=== PATIENT | male | born 1945 | race Caucasian/White ===

== ENCOUNTER 2020-02-04 14:48 | Emergency (ER) | payer MEDICARE, OTHER, SELFPAY ==
[2020-02-04] VITALS (19 sets, daily range): BP systolic 115–165; BP diastolic 59–85; PULSE 66–79; RESP 13–23; TEMP 36.8; O2SAT 93–98; BMI 30.1
--- NOTE | 2020-02-04 15:01 | DI.RAD.S_ITS ---
PROCEDURE: XR CHEST 1V INDICATIONS: chest pain TECHNIQUE: One view of the chest was acquired. COMPARISON: None. FINDINGS: Surgical changes and devices: None. Lungs and pleura: Lungs are clear. No pleural effusions or pneumothorax. Mediastinum: Mediastinal contours appear normal. Heart size is at the upper limits of normal. Bones and chest wall: No suspicious bony lesions. Overlying soft tissues appear unremarkable. IMPRESSION: No acute cardiopulmonary abnormality. Dictated by: Mohamud Nix M.D. on 02/04/2020 at 14:26 Approved by: Mohamud Nix M.D. on 02/04/2020 at 14:27
[2020-02-04 15:14] LABS: Add Manual Diff / Slide Review NO; Basophils Absolute Auto 0 /uL (0-100); Basophils Percent Auto 0.4 % (0-2); Eosinophils Absolute Auto 100 /uL (0-450); Eosinophils Percent Auto 2.2 % (2-4); Hematocrit 46.4 % (41-53); Hemoglobin 15.8 g/dL (13.5-17.5); Lymphocytes Absolute Auto 2100 /uL (1100-4500); Lymphocytes Percent Auto 36.7 % (25-40); Mean Corpuscular HGB Conc 34.1 % (30-36); Mean Corpuscular Hemoglobin 33.4 PG (26-34); Monocytes Absolute Auto 700 /uL (0-900); Monocytes Percent Auto 12.8 % (3-14); Neutrophils Absolute Auto 2700 /uL (1500-7000); Neutrophils Percent Auto 47.9 % (50-75); Platelet Count 208 X10^3/uL (150-400); Red Blood Cell Count 4.74 X10^6/uL (4.5-5.9); Red Cell Distribution Width 12.9 % (11.6-14.8); White Blood Cell Count 5.7 X10^3/uL (4.5-11.0)
[2020-02-04 15:29] LABS: Prothrombin Time 11.3 SECONDS (10.1-12.7)
[2020-02-04 15:32] LABS: PTT Partial Thromboplastin Tim 30 SECONDS (26.4-36.2)
[2020-02-04 15:33] LABS: Alanine Aminotransferase 26 IU/L (<50); Albumin 4.5 g/dL (3.5-5.0); Albumin Globulin Ratio 1.3 (1.0-2.8); Alkaline Phosphatase 96 U/L (38-126); Aspartate Aminotransferase 49 IU/L (17-59); BUN Creatinine Ratio 18.8 (6-22); Bilirubin Total 1.3 mg/dL (0.2-1.3); Blood Urea Nitrogen 19 mg/dL (9-20); Calcium 8.8 mg/dL (8.4-10.2); Carbon Dioxide 30 mmol/L (22-32); Chloride 106 mmol/L (98-107); Creatine Kinase 445 U/L (55-170); Estimated Glomerular Filt Rate > 60.0 mL/min (>60); Globulin 3.6 g/dL (1.7-4.1); Glucose 93 mg/dL (80-110); Lipase 205 U/L (23-300); Sodium 139 mmol/L (137-145); Total Protein 8.1 g/dL (6.3-8.2)
[2020-02-04 15:41] LABS: HEMOLYSIS 196 (0-50); Potassium 5.5 mmol/L (3.4-5.1)
[2020-02-04 15:48] LABS: CKMB % Relative Index 1.5 % (1.5-5.0); Creatine Kinase MB 6.78 ng/mL (<2.37)
--- NOTE | 2020-02-04 16:22 | ED_ITS ---
HPI - Chest Pain General Chief Complaint: Chest Pain Stated Complaint: Chest Tightness and equilibrium felt off Time Seen by Provider: 02/04/20 14:58 Source: patient Mode of arrival: Ambulatory Limitations: no limitations History of Present Illness HPI narrative: Patient is a 74-year-old male who presents with chest pain and not feeling right. He had gotten up from lunch high had made a couple passes in the room when he suddenly felt extremely lightheaded and had chest discomfort. His lowered him to the floor he did not really pass out. She made an go lay down intake and small nap. He now is feeling fine. He denies any further dizziness or lightheadedness. He no longer has chest pain he denies any shortness of breath although he has had a cough. They were traveling and waited 8 days until they got a COVID test, 2 days ago and received negative results yesterday. They are asymptomatic. Is nonproductive cough no change in taste or smell Related Data Allergies Allergy/AdvReac Type Severity Reaction Status Date / Time From ZITHROMAX Allergy Unknown Uncoded 05/26/17 11:53 Review of Systems Review of Systems ROS Unobtainable: All systems reviewed & are unremarkable except as noted in HPI and below Constitutional Constitutional: Denies body ache(s), Denies chills and Denies lethargy ENT Ears, Nose, Mouth, and Throat: Denies change in voice, Reports dizziness, Denies neck pain and Denies sore throat Cardiovascular Cardiovascular: Reports as per HPI, Reports chest pain, Denies syncope, Denies rapid heart rate, Denies edema, Reports lightheadedness, Denies radiating jaw, neck or arm pain, Denies palpitations and Denies dyspnea on exertion Respiratory Respiratory: Denies chest congestion, Reports cough, Denies pain on inspiration and Denies dyspnea on exertion Gastrointestinal Gastrointestinal: Denies abdominal pain, Denies change in bowel habits, Denies diarrhea, Denies nausea and Denies vomiting Musculoskeletal Musculoskeletal: Denies back pain, Denies myalgias and Denies neck pain Integumentary/Breasts Skin/Breast: Denies pruritus, Denies erythema, Denies rash and Denies wounds Neurologic Neurologic: Reports dizziness, Denies syncope and Reports lack of coordination (Off balance) Endocrine Endocrine: Denies palpitations Patient History Social History (Reviewed 02/04/20 @ 16:32 by JALEN Hadley Smoking Status: Never smoker Smoking Status: Never smoker alcohol intake frequency: 0-2 drinks per day Alcohol type: wine Substance Use Type: does not use Exam Initial Vital Signs Initial Vital Signs: Vital Signs Pulse Rate 76 02/04/20 14:59 Pulse Oximetry 97 02/04/20 14:59 GENERAL: Alert pleasant well-appearing 74-year-old male and in no acute distress. HEENT: Head atraumatic,EOMI, pupils reactive, face symmetric, moist mucous membranes CARDIOVASCULAR: Regular rate and rhythm without murmurs, rubs or gallops. RESPIRATORY: Breath sounds equal bilaterally, no wheezes rales or rhonchi. ABDOMEN: Soft, nontender. Normoactive bowel sounds all 4 quadrants. No guarding or rebound. EXTREMITIES: Normal range of motion, no clubbing or edema. Neurovascularly intact NEUROLOGICAL: Alert and oriented x4.Normal gait and speech. Cranial nerves II through XII grossly intact. Good [id number], good [id number], strength equal bilaterally, no dysarthria or aphasia, sensation in tact to soft touch bilaterally, no visual changes, no facial droop SKIN: Warm, dry, no laceration, no petechiae, no rashes or lesions. Scores NIH Stroke Scale Level of Conciousness: Alert, keenly responsive Ask month/age: Answers both questions correctly. Open/close eyes, close hand: Performs both tasks correctly Best gaze horizontal: Normal Visual russell: No visual loss Facial palsy: Normal symetrical movement Left arm drift: No drift for full 10 sec Right arm drift: No drift for full 10 sec Left leg drift: No drift for full 5 sec Right leg drift: No drift for full 5 sec Limb ataxia: Absent Sensory on face/arms/legs: Normal, no sensory loss Best language: No aphasia, normal Dysarthria: Normal Extinction or inattention: No abnormality Total NIH Stroke scale score: 0 Course Orders Ordered: ED Orders 02/04/20 15:01 XR chest 1V Stat EKG-12 Lead Stat 02/04/20 15:02 Complete Blood Count AUTO DIFF Stat Comprehensive Metabolic Panel Stat Lipase Stat Partial Thromboplastin Time Stat Prothrombin Time INR Stat Troponin & CK Cardiac Panel Stat 02/04/20 15:12 COVID19 Stat 02/04/20 16:23 CT head/brain wo con Stat 02/04/20 16:31 D Dimer Stat 02/04/20 17:02 Troponin I Stat Heparin Sodium/Dextrose (Heparin Drip) 25,000 unit in 500 mls @ 20 mls/hr IV CONT AKILA; Protocol Last Admin: 02/04/20 18:01 Dose: 1,000 units/hr, 20 mls/hr Documented by: ZEUS Discontinued Medications Aspirin (Aspirin 81 Mg Chew Tab) 324 mg PO NOW ONE Stop: 02/04/20 17:51 Last Admin: 02/04/20 17:58 Dose: 324 mg Documented by: ZEUS Heparin Sodium (Porcine) (Heparin 5,000 Unit/Ml Vial) 5,000 unit IV NOW ONE Stop: 02/04/20 17:51 Last Admin: 02/04/20 18:00 Dose: 5,000 unit Documented by: ZEUS Vital Signs Vital signs: Vital Signs - 8 hr 02/04/20 14:59 02/04/20 15:00 02/04/20 15:16 Temperature 98.2 F Pulse Rate 76 79 72 Pulse Rate [Orthostatic Lying] Pulse Rate [Orthostatic Sitting] Pulse Rate [Orthostatic Standing] Respiratory Rate 16 18 Blood Pressure 165/85 H 153/82 H Blood Pressure [Orthostatic Lying] Blood Pressure [Orthostatic Sitting] Blood Pressure [Orthostatic Standing] Pulse Oximetry 97 98 97 02/04/20 15:18 02/04/20 15:19 02/04/20 15:29 Temperature Pulse Rate 71 78 Pulse Rate [Orthostatic Lying] 74 Pulse Rate [Orthostatic Sitting] 74 Pulse Rate [Orthostatic Standing] 78 Respiratory Rate 14 23 Blood Pressure 139/79 Blood Pressure [Orthostatic Lying] 153/82 H Blood Pressure [Orthostatic Sitting] 139/79 Blood Pressure [Orthostatic Standing] 153/75 H Pulse Oximetry 96 96 02/04/20 15:30 02/04/20 16:00 02/04/20 16:34 Temperature Pulse Rate 69 69 68 Pulse Rate [Orthostatic Lying] Pulse Rate [Orthostatic Sitting] Pulse Rate [Orthostatic Standing] Respiratory Rate 15 13 Blood Pressure 135/70 115/59 L Blood Pressure [Orthostatic Lying] Blood Pressure [Orthostatic Sitting] Blood Pressure [Orthostatic Standing] Pulse Oximetry 95 94 96 02/04/20 16:59 02/04/20 17:00 02/04/20 17:30 Temperature Pulse Rate 66 66 67 Pulse Rate [Orthostatic Lying] Pulse Rate [Orthostatic Sitting] Pulse Rate [Orthostatic Standing] Respiratory Rate 17 18 13 Blood Pressure 141/85 H 128/80 Blood Pressure [Orthostatic Lying] Blood Pressure [Orthostatic Sitting] Blood Pressure [Orthostatic Standing] Pulse Oximetry 95 96 93 02/04/20 18:00 02/04/20 18:02 Temperature Pulse Rate 70 68 Pulse Rate [Orthostatic Lying] Pulse Rate [Orthostatic Sitting] Pulse Rate [Orthostatic Standing] Respiratory Rate 20 21 Blood Pressure 153/84 H Blood Pressure [Orthostatic Lying] Blood Pressure [Orthostatic Sitting] Blood Pressure [Orthostatic Standing] Pulse Oximetry 97 96 MDM - Chest Pain Lab Data Attestation: I reviewed the patient's lab results. Result diagrams: 02/04/20 15:02 02/04/20 15:02 Labs: Lab Results 02/04/20 02/04/20 02/04/20 Range/Units 15:02 15:02 15:02 WBC 5.7 (4.5-11.0) X10^3/uL RBC 4.74 (4.5-5.9) X10^6/uL Hgb 15.8 (13.5-17.5) g/dL Hct 46.4 (41-53) % MCV 98.0 (80-100) fL MCH 33.4 (26-34) PG MCHC 34.1 (30-36) % RDW 12.9 (11.6-14.8) % Plt Count 208 (150-400) X10^3/uL Neut % (Auto) 47.9 L (50-75) % Lymph % (Auto) 36.7 (25-40) % [place] % (Auto) 12.8 (3-14) % Eos % (Auto) 2.2 (2-4) % Baso % (Auto) 0.4 (0-2) % Neut # (Auto) 2700 (9718-8408) /uL Lymph # (Auto) 2100 (0297-4681) /uL [place] # (Auto) 700 (0-900) /uL Eos # (Auto) 100 (0-450) /uL Baso # (Auto) 0 (0-100) /uL PT 11.3 (10.1-12.7) SECONDS INR 1.0 (0.9-1.3) APTT 30 (26.4-36.2) SECONDS D-Dimer (<230) ng/mL Sodium 139 (137-145) mmol/L Potassium 5.5 H (3.4-5.1) mmol/L Chloride 106 (98-107) mmol/L Carbon Dioxide 30 (22-32) mmol/L BUN 19 (9-20) mg/dL Creatinine 1.01 (0.66-1.25) mg/dL Estimated GFR > 60.0 (>60) mL/min BUN/Creatinine Ratio 18.8 (6-22) Glucose 93 (80-110) mg/dL Calcium 8.8 (8.4-10.2) mg/dL Total Bilirubin 1.3 (0.2-1.3) mg/dL AST 49 (17-59) IU/L ALT 26 (<50) IU/L Alkaline Phosphatase 96 (38-126) U/L Total Creatine Kinase 445 H (55-170) U/L CK-MB (CK-2) 6.78 H (<2.37) ng/mL CK-MB (CK-2) Rel Index 1.5 (1.5-5.0) % Troponin I 0.050 H (0.01-0.034) ng/mL Total Protein 8.1 (6.3-8.2) g/dL Albumin 4.5 (3.5-5.0) g/dL Globulin 3.6 (1.7-4.1) g/dL Albumin/Globulin Ratio 1.3 (1.0-2.8) Lipase 205 (23-300) U/L COVID-19 PCR (Negative) 02/04/20 02/04/20 02/04/20 Range/Units 15:12 16:31 17:02 WBC (4.5-11.0) X10^3/uL RBC (4.5-5.9) X10^6/uL Hgb (13.5-17.5) g/dL Hct (41-53) % MCV (80-100) fL MCH (26-34) PG MCHC (30-36) % RDW (11.6-14.8) % Plt Count (150-400) X10^3/uL Neut % (Auto) (50-75) % Lymph % (Auto) (25-40) % [place] % (Auto) (3-14) % Eos % (Auto) (2-4) % Baso % (Auto) (0-2) % Neut # (Auto) (6072-6416) /uL Lymph # (Auto) (5140-9984) /uL [place] # (Auto) (0-900) /uL Eos # (Auto) (0-450) /uL Baso # (Auto) (0-100) /uL PT (10.1-12.7) SECONDS INR (0.9-1.3) APTT (26.4-36.2) SECONDS D-Dimer 244 H (<230) ng/mL Sodium (137-145) mmol/L Potassium (3.4-5.1) mmol/L Chloride (98-107) mmol/L Carbon Dioxide (22-32) mmol/L BUN (9-20) mg/dL Creatinine (0.66-1.25) mg/dL Estimated GFR (>60) mL/min BUN/Creatinine Ratio (6-22) Glucose (80-110) mg/dL Calcium (8.4-10.2) mg/dL Total Bilirubin (0.2-1.3) mg/dL AST (17-59) IU/L ALT (<50) IU/L Alkaline Phosphatase (38-126) U/L Total Creatine Kinase (55-170) U/L CK-MB (CK-2) (<2.37) ng/mL CK-MB (CK-2) Rel Index (1.5-5.0) % Troponin I 0.126 H* (0.01-0.034) ng/mL Total Protein (6.3-8.2) g/dL Albumin (3.5-5.0) g/dL Globulin (1.7-4.1) g/dL Albumin/Globulin Ratio (1.0-2.8) Lipase (23-300) U/L COVID-19 PCR Negative (Negative) Imaging Data Chest x-ray: Radiologist's Impression: PROCEDURE: XR CHEST 1V INDICATIONS: chest pain TECHNIQUE: One view of the chest was acquired. COMPARISON: None. FINDINGS: Surgical changes and devices: None. Lungs and pleura: Lungs are clear. No pleural effusions or pneumothorax. Mediastinum: Mediastinal contours appear normal. Heart size is at the upper limits of normal. Bones and chest wall: No suspicious bony lesions. Overlying soft tissues appear unremarkable. IMPRESSION: No acute cardiopulmonary abnormality. Dictated by: Mohamud Nix M.D. on 02/04/2020 at 14:26 CT scan - head: Radiologist's Impression: PROCEDURE: CT HEAD/BRAIN WO CON INDICATIONS: dizzy near syncope TECHNIQUE: Noncontrast 4.5 mm thick angled axial sections acquired from the foramen magnum to the vertex, with coronal and sagittal reformats. For radiation dose reduction, the following was used: automated exposure control, adjustment of mA and/or kV according to patient size. COMPARISON: None. FINDINGS: Image quality: Excellent. CSF spaces: Basal cisterns are patent. No extra-axial fluid collections. Ventricles are normal in size and shape. Brain: No midline shift. No intracranial masses or hemorrhage. No area of hypodensity in a large vascular distribution to suggest acute infarction. Periventricular hypodensity consistent with chronic microvascular ischemic change. Age-related parenchymal loss. Skull and face: Calvarium and visualized facial bones are intact, without suspicious lesions. Sinuses: Visualized sinuses and mastoids are clear. IMPRESSION: No acute intracranial abnormality. Dictated by: Mohamud Nix M.D. on 02/04/2020 at 15:46 ECG Data Attestation: I personally reviewed and interpreted this ECG as follows: Prior ECG tracings: not available for review Interpretation: EKG 1. Normal sinus rhythm rate 75 p.r. interval 182 QRS 86 QTC 445 Q-wave noted in lead [address] changes no priors to compare no T-wave inversions EKG 2. Sinus rhythm rate 68 however Q-waves are noted in 2 and AVF with T-wave inversion noted in lead [address] elevations she weighs previously noted in 1 and aVL are no longer present EKG 3 sinus rhythm persisting Q-waves in 2 and AVF with T-wave inversion in lead [address] changes similar to EKG 2. MDM Narrative Medical decision making narrative: Patient 74-year-old male who complains of not feeling right and some chest discomfort. Initial EKG has Q-waves in lateral leads which are then resolved by the 2nd EKG and now he has Q-waves in inferior leads with T-wave inversions not know EKG shows ST elevation. Presumably limb leads were reversed. Initial troponin is indeterminate repeat troponin is now and clearly positive. Patient denies any recurrence of chest pain a in the emergency department and remains comfortable. 1814 Dr. Marcelo special procedures technologist updated patient's symptoms test results and EKGs agrees with transfer to [facility] admit to hospitalist 1849 Dr. Vega, hospitalist at [facility] updated in symptoms test results agrees with transfer Critical Care Time Critical Care Time Critical Care Time: Yes Total Critical Care Time: 30 Attestation: The high probability of a clinically significant, sudden or life threatening deterioration of the [cardiovascular] system(s) required my full and direct attention, intervention and personal management. The aggregate critical care time was 30 minutes. This time is in addition to time spent performing reported procedures but includes the following: [x] Data Review and interpretation [x] Patient assessment and monitoring of vital signs [x] Documentation [x] Medication orders and management Discharge Plan Departure Patient Disposition: [facility] Clinical Impression: Acute non-ST elevation myocardial infarction (NSTEMI)
[2020-02-04 16:51] LABS: D Dimer 244 ng/mL (<230)
[2020-02-04 17:50] LABS: Troponin I 0.126 ng/mL (0.01-0.034)
[2020-02-04] MEDS: ASPIRIN 81 MG CHEW TAB 324 MG PO (17:58)
[2020-02-04] MEDS: HEPARIN 5,000 UNIT/ML VIAL 5000 UNIT IV (18:00)
[2020-02-04] MEDS: HEPARIN DRIP 25,000 UNIT/500 ML IV.SOLN 20 UNIT IV (18:01)
--- NOTE | 2020-02-04 18:07 | PC.NURSE ---
Heparin drip started at 1000unit/hr per provider order. Dosage and pump setting confirmed with Venessa RN prior to starting.
[2020-02-04 18:23] LABS: COVID19 -Nasal RAPID Negative (Negative)
== END 2020-02-04 20:15 | disposition short-term general hospital (02) ==
PROVIDERS: Emergency Provider Emergency Medicine
DX: I21.4 Non-ST elevation (NSTEMI) myocardial infarction (principal); R42 Dizziness and giddiness; R05 Cough; Z20.828 Contact with and (suspected) exposure to other viral communicable diseases; R07.9 Chest pain, unspecified; R79.89 Other specified abnormal findings of blood chemistry; R26.81 Unsteadiness on feet
CPT/HCPCS: 36415; 70450; 71045; 80053; 82550; 82553; 83690; 84484; 85025; 85379; 85610; 85730; 87635; 93005; 96365; 96366; 96375; 99284; 99291; J1644

== ENCOUNTER → 2021-07-07 09:03 | Outpatient (CLI) | payer MEDICARE, OTHER, SELFPAY ==
[2021-07-07 11:11] LABS: COVID19 -Nasal RAPID Negative (Negative)
== END ==
PROVIDERS: Visit Provider Family Medicine Sleep Medicine
DX: Z20.822 Contact with and (suspected) exposure to COVID-19 (principal); Z01.812 Encounter for preprocedural laboratory examination
CPT/HCPCS: 87635; C9803

== ENCOUNTER 2021-07-08 11:56 | Day surgery (SDC) | payer MEDICARE, OTHER, SELFPAY ==
--- NOTE | 2021-07-08 08:10 | P.HP_ITS ---
History of Present Illness History of Present Illness Date Patient Seen: 07/08/21 Chief complaint: SDC Narrative: 75 year old male comes in today for consideration of a screening colonoscopy. Last colonoscopy in 2006 indicated for screening, normal. There have been no lower GI symptoms suggesting disease such as change in bowel habits, bleeding, abdominal pain or anemia. There's been no family history of colon cancer or colon polyps. Overall health issues have been stable, including no major cardiac events for at least 6 weeks. PCP: Dr. Amin Past medical history: Demand ischemia, isolated episode with negative cath Osteoarthritis Hyperlipidemia Hypogonadism Acquired deformity of ankle and foot GERD Gout Past surgical history: None Family history: Noncontributory Social history: , 2 glasses of red wine daily. Patient History Family & Social History Tobacco & Substance use: Smoking Status Never smoker alcohol intake frequency 0-2 drinks per day Substance Use Type does not use Meds Home Medications and Allergies Home Medications Medication Instructions Recorded Confirmed Type acetaminophen 325 mg capsule 650 mg PO Q6H PRN 07/08/21 07/08/21 History (Tylenol) naproxen sodium 220 mg tablet 220 mg PO Q8H 07/08/21 07/08/21 History (Aleve) Allergies Allergy/AdvReac Type Severity Reaction Status Date / Time From ZITHROMAX Allergy Intermediate Cramping Uncoded 07/08/21 12:18 of the Muscles Review of Systems Review of Systems Narrative: All remaining ROS were reviewed and negative except as addressed. Exam Narrative Exam Narrative: GENERAL: Alert and oriented, appearing stated age and in no acute distress. HEENT: Head normocephalic/atraumatic. Extraocular movements intact. LUNGS: Clear to ausculation bilaterally, no wheezes, rhonchi or rales. CV: Normal S1 and S2 with regular rate and rhythm, no audible murmurs, rubs or gallops. ABDOMEN: Soft, non-tender, non-distended, no organomegaly. Positive bowel sounds. EXTREMITIES: No clubbing, cyanosis, or edema. NEURO: Cranial nerves II through XII grossly intact, no focal deficits. PSYCH: Alert and oriented x 3. SKIN: No concerning lesions. Assessment & Plan Assessment & Plan narrative: 1. Screening for colon cancer Plan for colonoscopy. The nature and character of the procedure as well as anticipated results were discussed. The possibility of not completing the procedure was also discussed. Possible complications including aspiration pn eumonia, bleeding, perforation and reaction to medications either for sedation or preparation and missed lesions were discussed. Questions were answered and proceeding to the colonoscopy was elected. Informed consent signed. I sincerely appreciate the referral allowing me to participate in this patient's care. Please contact me with any questions or concerns.
--- NOTE | 2021-07-08 08:15 | PM.OP.COLON ---
Operative Date/Time/Diagnoses Date of procedure: 07/08/21 Procedure Notes SCOAP/Timeout: 1:12 p.m. Procedure in detail: ENDOSCOPIST: Lexi Sofia MD Sedation RN: Edith Garcia RN Sedation start time: 1:13 p.m. Sedation end time: 1:42 p.m. PROCEDURE: Colonoscopy INDICATIONS: 1. Screening for colon cancer MEDICATION: Levsin 0.125 mg sublingual, incremental doses of Versed and fentanyl until appropriate level sedation achieved. ASA CLASS: 2 CECAL WITHDRAWAL TIME: 6 minutes COMPLICATIONS: None. EXTENT OF PROCEDURE: Cecum. QUALITY OF PREP: Good with portions of liquid stool. PROCEDURE: Prior to insertion of the colonoscope, a digital rectal examination was accomplished with circumferential palpation of the distal rectal mucosa without significant findings being noted. The high-definition colonoscope was passed into the rectum in the usual fashion and advanced over to the cecum without difficulty. The ileocecal valve, appendiceal stoma, and medial wall all could be inspected and no abnormalities were seen. ASCENDING COLON: As the colonoscope was withdrawn, care was taken to expose and inspect the haustral folds and no abnormalities were seen. HEPATIC FLEXURE: Normal, no polyps, diverticula or other abnormalities. TRANSVERSE COLON: Normal, no polyps, diverticula or other abnormalities. DESCENDING COLON: Minor diverticulosis, otherwise, normal, no polyps, or other abnormalities. SIGMOID COLON: Minor diverticulosis, otherwise,normal, no polyps, or other abnormalities. RECTUM: Normal. J maneuver was produced. There was no significant perianal disease. The J maneuver was broken. The remainder of the rectum was inspected and there was no external hemorrhoid disease. The scope was withdrawn. IMPRESSION: 1. Normal colonoscopy 2. Left-sided diverticulosis PLAN: 1. Secondary to age, this can be patient's last screening colonoscopy The possibility of a missed lesion including a malignancy has been discussed with the patient previously. Potential alarm symptoms have been discussed and should be reported immediately.
[2021-07-08 12:23] VITALS: BP 143/84; PULSE 72; RESP 16; TEMP 36.4; O2SAT 100; BMI 31.5
[2021-07-08] MEDS: LACTATED RINGERS 1,000 ML 200 ML IV (12:38)
[2021-07-08] MEDS: HYOSCYAMINE 0.125 MG TABLET PO (12:46)
[2021-07-08] MEDS: MIDAZOLAM 5 MG/5 ML VIAL 4 MG IV (13:13)
[2021-07-08] MEDS: fentaNYL 250 MCG/5 ML INJ 100 MCG IV (13:13)
[2021-07-08 13:45] VITALS: BP 119/78; PULSE 63; RESP 11; TEMP 36.2; O2SAT 96
[2021-07-08 13:50] VITALS: BP 126/83; PULSE 71; RESP 11; O2SAT 95
[2021-07-08 13:56] VITALS: BP 130/88; PULSE 69; RESP 13; O2SAT 97
== END 2021-07-08 14:05 | disposition home or self-care (01) ==
PROVIDERS: Referring Provider Student in an Organized Health Care Education/Training Program; Visit Provider Student in an Organized Health Care Education/Training Program
PROC: 0DJD8ZZ Inspection of Lower Intestinal Tract, Via Natural or Artificial Opening Endoscopic (ICD-10-PCS; CPT 45378; principal; 2021-07-08 13:00)
DX: Z12.11 Encounter for screening for malignant neoplasm of colon (principal); K57.30 Diverticulosis of large intestine without perforation or abscess without bleeding
CPT/HCPCS: G0121; J2250; J3010

== ENCOUNTER → 2021-11-25 15:14 | Outpatient (CLI) | payer MEDICARE, OTHER, SELFPAY ==
--- NOTE | 2021-11-25 | DI.MRI.S_ITS ---
PROCEDURE: MR LUMBAR SPINE WO/W CON INDICATIONS: RADICULOPATHY TECHNIQUE: Noncontrast sagittal T1 spin echo and T2 fast spin echo, sagittal STIR, axial T1 and T2 fast spin echo through the lumbar spine. In cases with scoliosis, additional coronal T2 fast spin echo may be performed. After the administration of contrast, sagittal and axial T1 spin echo with fat saturation through the lumbar spine. COMPARISON: [facility], MR, MR THORACIC SPINE WO/W CON, 11/25/2021, 15:41. FINDINGS: Image quality: Excellent. Alignment and curvature: There is 7 mm retrolisthesis of L2 on L3, 3 mm retrolisthesis L3 on L4 as well as L5 on S1. Marrow: Marrow is of normal overall signal. Mild reactive endplate changes are present at T12-L1, L1-2, L2-3, L4-5. No acute vertebral body compression fractures. No suspicious marrow enhancement. Spinal cord: Conus medullaris terminates at the L1 level. Visualized spinal cord demonstrates normal signal, without suspicious enhancement. Paraspinous soft tissues: No paravertebral masses or abnormal enhancement. Discs: Severe desiccation is present throughout the lumbar spine. T12-L1: Mild disc bulge with posterior left paracentral extrusion. There is compromise of the left lateral recess. No foraminal narrowing. Moderate spinal stenosis. L1-L2: Mild disc bulge with severe spinal stenosis and mild canal flattening. Moderate left and mild right foraminal narrowing with epidural lipomatosis. Facet and ligamentum flavum hypertrophy are present. L2-L3: Mild disc bulge with moderate to severe spinal stenosis. Severe right and moderate left foraminal narrowing with mild flattening of the exiting right L2 nerve roots. Facet and ligamentum flavum hypertrophy are present. L3-L4: Mild disc bulge with severe spinal stenosis and canal compression. Severe right and mild left foraminal narrowing with nerve root compression of the exiting right L3 nerve roots. Facet and ligamentum flavum hypertrophy as well as prominent epidural lipomatosis are present. L4-L5: Mild disc bulge with severe spinal stenosis and canal compression. Severe right and moderate left foraminal narrowing with mild compression of the exiting right L4 nerve roots. Facet and ligamentum flavum hypertrophy as well as epidural lipomatosis are present. L5-S1: Mild disc bulge with moderate to severe spinal stenosis. Severe bilateral foraminal narrowing with nerve root compression of the exiting L5 nerve roots are present, right greater than left. Posterior left facet joint cyst is noted. IMPRESSION: Multilevel disc bulges including extrusion at T12-L1 as above. Multilevel significant spinal stenosis severe at L1-2, L2-3, L3-4 at L4-5 secondary to disc bulge with contributing effect of facet/ligamentum flavum arthropathy as well as epidural lipomatosis. Multilevel significant foraminal narrowing severe at L2-3, L3-4, L4-5 and L5-S1 secondary to facet arthropathy. Dictated by: Yisel Jauregui M.D. on 11/26/2021 at 11:48 Approved by: Yisel Jauregui M.D. on 11/26/2021 at 15:18
--- NOTE | 2021-11-25 15:18 | DI.MRI.S_ITS ---
PROCEDURE: MR THORACIC SPINE WO/W CON INDICATIONS: LACK OF COORDINATION, RADICULOPATHY TECHNIQUE: Noncontrast sagittal T1 spin echo and T2 fast spin echo, sagittal STIR, axial T1 and T2 fast spin echo through the thoracic spine. After the administration of contrast, axial and sagittal T1 spin echo with fat saturation through the thoracic spine. COMPARISON: [facility], MR, MR LUMBAR SPINE WO/W CON, 11/25/2021, 15:41. [facility], MR, MR CERVICAL SPINE WO/W CON, 11/25/2021, 15:41. FINDINGS: Image quality: Excellent. Alignment and curvature: There is there is trace anterolisthesis of C7 on T1, T9 on T10, T10 on T11. Marrow: Marrow is of normal overall signal. Minimal reactive endplate changes are present T10-11, T12-L1. No acute vertebral body compression fractures. Spinal cord: Visualized spinal cord is of normal signal and size, without abnormal enhancement. Paraspinous soft tissues: No paravertebral masses or abnormal enhancement. Miscellaneous: Hyperintense T2 signal is noted within the right kidney most suggestive of simple cyst. Minimal disc bulges are present at T2-3, T3-4, T6-7, T7-8, posterior left paracentral protrusion T8-9, right posterior paracentral protrusion T9-10, mild disc bulge T10-11, extrusion at T12-L1. Mild spinal stenosis is present at T8-9, face min the anterior thecal sac at T9-10, mild to moderate spinal stenosis T10-11, moderate T12-L1. Foramina appear widely patent at all scanned levels. IMPRESSION: Multilevel scattered disc bulges well as mild spinal stenosis as above. Extrusion at T12-L1 is noted. Please see MRI lumbar spine report for further details. Dictated by: Yisel Jauregui M.D. on 11/26/2021 at 15:18 Approved by: Yisel Jauregui M.D. on 11/26/2021 at 16:14
--- NOTE | 2021-11-25 15:19 | DI.MRI.S_ITS ---
PROCEDURE: MR CERVICAL SPINE WO/W CON INDICATIONS: LACK OF COORDINATION, RADICULOPATHY TECHNIQUE: Noncontrast sagittal T1 spin echo and T2 fast spin echo, sagittal STIR, foraminal oblique sagittal T2 fast spin echo, axial gradient echo or T2 fast spin echo through the cervical spine. After the administration of contrast, axial and sagittal T1 spin echo with fat saturation through the cervical spine. COMPARISON: None. FINDINGS: Image quality: Excellent. Alignment and curvature: There is 3 mm anterolisthesis of C2 on C3, 2 mm anterolisthesis of C7 on T1, 2 mm retrolisthesis of C4 on C5. Marrow: Marrow is normal in overall signal, without suspicious enhancement. Spinal cord: Visualized spinal cord has normal size and signal. No cerebellar tonsillar herniation. No abnormal intramedullary enhancement. Paraspinous soft tissues: No paravertebral masses or suspicious enhancement. Discs: Multilevel moderate degenerative disc desiccation is present most severe at C4-5. C2-3: Mild disc bulge without spinal stenosis. Moderate to severe left and mild right foraminal narrowing with uncovertebral hypertrophy. C3-4: Mild disc bulge with moderate to severe spinal stenosis. Severe bilateral foraminal narrowing with uncovertebral hypertrophy. C4-5: Mild disc bulge with moderate to severe spinal stenosis. There is severe left and moderate to severe right foraminal narrowing with uncovertebral hypertrophy. C5-6: Mild disc bulge with minimal effacement of the anterior thecal sac. Mild bilateral foraminal narrowing with uncovertebral hypertrophy. C6-7: Mild disc bulge with moderate spinal stenosis. Severe left and moderate to severe right foraminal narrowing with uncovertebral hypertrophy. C7-T1: Minimal disc bulge without spinal stenosis or foraminal narrowing. IMPRESSION: Multilevel disc bulges. Multilevel spinal stenosis most severe at C3-4, C4-5 secondary to disc bulges. Multilevel moderate to severe foraminal narrowing most significant at C3-4, C4-5 and C6-7 secondary to uncovertebral arthropathy. Dictated by: Yisel Jauregui M.D. on 11/26/2021 at 11:12 Approved by: Yisel Jauregui M.D. on 11/26/2021 at 11:41
== END ==
PROVIDERS: Referring Provider Family Medicine; Visit Provider Family Medicine
DX: M50.11 Cervical disc disorder with radiculopathy, high cervical region (principal); M47.22 Other spondylosis with radiculopathy, cervical region; M48.02 Spinal stenosis, cervical region; M51.14 Intervertebral disc disorders with radiculopathy, thoracic region; M51.15 Intervertebral disc disorders with radiculopathy, thoracolumbar region; M48.04 Spinal stenosis, thoracic region; M51.16 Intervertebral disc disorders with radiculopathy, lumbar region; M47.26 Other spondylosis with radiculopathy, lumbar region; M48.061 Spinal stenosis, lumbar region without neurogenic claudication; M51.17 Intervertebral disc disorders with radiculopathy, lumbosacral region; M48.07 Spinal stenosis, lumbosacral region; R27.9 Unspecified lack of coordination
CPT/HCPCS: 72156; 72157; 72158; A9579

== ENCOUNTER → 2022-04-15 12:11 | Outpatient (ROUT) | payer MEDICARE, OTHER, SELFPAY ==
[2022-04-15 12:25] LABS: Prothrombin Time 11.5 SECONDS (10.1-12.7)
[2022-04-15 12:27] LABS: PTT Partial Thromboplastin Tim 31 SECONDS (26-36)
== END ==
PROVIDERS: Visit Provider Family Medicine
DX: M54.16 Radiculopathy, lumbar region (principal)
CPT/HCPCS: 85610; 85730

== ENCOUNTER → 2022-08-20 16:31 | Outpatient (CLI) | payer MEDICARE, OTHER, SELFPAY ==
--- NOTE | 2022-08-20 16:38 | DI.RAD.S_ITS ---
PROCEDURE: XR CERVICAL SPINE 2V OR 3V INDICATIONS: Follow up of surgery TECHNIQUE: Two views of the cervical spine were acquired. COMPARISON: [facility], MR, MR CERVICAL SPINE WO/W CON, 11/25/2021, 15:41. FINDINGS: Bones: Postsurgical changes are seen from anterior spinal fusion at the C4-5 level. Metallic hardware is intact. Additional [id number] multilevel degenerative changes are present. No acute fractures or dislocations to the C7 level. No suspicious bony lesions. Soft tissues: No prevertebral soft tissue swelling. IMPRESSION: Postsurgical changes from anterior fusion at C4-5 with hardware components in expected positions. Approved by: Adin Boland M.D. on 08/20/2022 at 20:42
== END ==
PROVIDERS: Referring Provider Neurological Surgery; Visit Provider Neurological Surgery
DX: Z09 Encounter for follow-up examination after completed treatment for conditions other than malignant neoplasm (principal); Z98.1 Arthrodesis status
CPT/HCPCS: 72040

== ENCOUNTER → 2022-12-18 09:39 | Outpatient (CLI) | payer MEDICARE, OTHER, SELFPAY ==
--- NOTE | 2022-12-18 09:43 | DI.NM.S_ITS ---
PROCEDURE: NM KAREN PERF SPECT R&S PHARM Rest and pharmacological stress myocardial perfusion SPECT with gated imaging and ejection fraction RADIOPHARMACEUTICAL: 12.0 mCi Tc-99m tetrafosmin IV at rest and 25.2 mCi Tc-99m tetrafosmin IV at peak effect of pharmacological stress. [id number] was performed. INDICATIONS: Shortness of breath TECHNIQUE: Radiopharmaceutical was injected at peak stress test, and also at rest. SPECT images were obtained. SPECT myocardial perfusion images were displayed in short axis, horizontal long axis, and vertical long axis views. Gated images were reviewed using tok tok tok software. COMPARISON: None. CARDIAC STRESS: A pharmacologic stress test was performed under the supervision of an attending staff, using an infusion of lexiscan 0.4mg IV X1. Hemodynamic data: There is normal blood pressure and heart rate response to pharmacologic stress. Symptoms: The patient denied anginal chest pain. Aminophylline: none EKG: No diagnostic changes of ischemia; no ectopy. FINDINGS: Raw data: There is good myocardial uptake of radiotracer. No significant motion artifacts. Iiag-zu-fgjnb ratio is 0.32 (normal is less than 0.38 for tetrafosmin tracer). Left ventricle function: Gated images demonstrate normal left ventricular wall thickening. No segmental wall motion abnormalities. No transient ischemic dilation; TID is 0.91 (normal less than 1.3). Left ventricle resting end diastolic volume is 90 mL. Left ventricle stress ejection fraction is 83%; normal range is above 45%. Myocardial perfusion: There is a moderately intense fixed inferior wall defect that resolves with prone imaging, suggesting diaphragmatic attenuation artifact. No prior infarction and no ischemia. IMPRESSION: Low risk, normal pharmaceutical nuclear stress test 1) There is a moderately intense fixed inferior wall defect that resolves with prone imaging, suggesting diaphragmatic attenuation artifact. No prior infarction and no ischemia. 2) Normal left ventricular size, wall motion, and systolic function (EF post stress 83%). 3) No ST changes with lexiscan. 4) No angina during the study. 5) No prior nuclear stress test available for comparison. Dictated by: Emery Grayson MD on 12/18/2022 at 16:17 Approved by: Emery Grayson MD on 12/18/2022 at 16:20
== END ==
PROVIDERS: PCP Family Medicine; Referring Provider Family Medicine; Visit Provider Family Medicine
DX: R06.02 Shortness of breath (principal)
CPT/HCPCS: 78452; 93017; A9502; J2785

== ENCOUNTER → 2023-02-10 08:56 | Outpatient (CLI) | payer MEDICARE, OTHER, SELFPAY ==
--- NOTE | 2023-02-10 | DI.US.S_ITS ---
PROCEDURE: US ABDOMEN COMPLETE INDICATIONS: BACK PAIN TECHNIQUE: Real-time scanning was performed of the abdominal and retroperitoneal organs, with image documentation. COMPARISON: None. FINDINGS: Liver: Liver is normal in size and homogeneous in echotexture. Gallbladder: Sonolucent without evidence cholelithiasis, gallbladder wall thickening or pericholecystic fluid. No sonographic Finley sign. Common bile duct: 0.3 mm. Pancreas: Visualized portions of the pancreas are within normal limits. Spleen: Spleen is normal in size and homogeneous in echotexture. Kidneys: Kidneys are normal in size and echotexture. No hydronephrosis or nephrolithiasis. No solid mass lesions. Incidental 2.5 cm right renal simple cortical cyst Aorta: Visualized aorta is unremarkable without aneurysm. Iliac Arteries: Proximal common iliac arteries are unremarkable. IVC: Intrahepatic inferior vena cava is patent. Miscellaneous: No free abdominal fluid. IMPRESSION: Unremarkable ultrasound of the abdomen Approved by: Benito Lewis M.D. on 02/10/2023 at 15:12
== END ==
PROVIDERS: PCP Family Medicine; Referring Provider Family Medicine; Visit Provider Family Medicine
DX: Z87.891 Personal history of nicotine dependence (principal); M54.9 Dorsalgia, unspecified
CPT/HCPCS: 76700

== ENCOUNTER → 2023-05-25 13:54 | Outpatient (CLI) | payer MEDICARE, OTHER, SELFPAY ==
--- NOTE | 2023-05-25 13:58 | DI.CT.S_ITS ---
PROCEDURE: CT CERVICAL SPINE WO CON INDICATIONS: CERVICAL AND THORACIC MYELOPATHY TECHNIQUE: Noncontrast 3 mm thick sections acquired from the skull base to the T4 level. Sagittal and coronal reformats were then constructed. For radiation dose reduction, the following was used: automated exposure control, adjustment of mA and/or kV according to patient size. COMPARISON: None. FINDINGS: Image quality: Excellent. Bones: No fractures or dislocations. Visualized superior ribs are intact. Remote ACDF C4-C5. Anterior plate and screw fixation. No evidence hardware failure loosening. Interbody bone graft material still not mature. 3 mm anterolisthesis C2 on C3. Trace retrolisthesis C3 on C4. Trace anterolisthesis C5 on C6. Trace anterolisthesis C7 on T1. Multilevel facet arthropathy. Bilateral severe bony foraminal narrowing at C3-C4 and C4-C5. There is a degree of canal stenosis at C3-C4. Soft tissues: Prevertebral soft tissues are normal in thickness. No paravertebral hematomas. No apical pneumothoraces. IMPRESSION: 1. No acute cervical fracture or dislocation. 2. Expected appearance of ACDF with no evidence of hardware failure or loosening. 3. Spondylitic change with multilevel facet arthropathy, significant bony foraminal narrowing at C3-C4 and C4-C5, and a degree of canal stenosis at C3-C4. Dictated by: Ryan Chu M.D. on 05/25/2023 at 20:27 Approved by: Ryan Chu M.D. on 05/25/2023 at 20:31
--- NOTE | 2023-05-25 13:59 | DI.CT.S_ITS ---
PROCEDURE: CT THORACIC SPINE WO CON INDICATIONS: CERVICAL AND THORACIC MYELOPATHY TECHNIQUE: Noncontrast 3 mm thick sections acquired through the region of interest in the thoracic spine. Sagittal and coronal reformats were then constructed. For radiation dose reduction, the following was used: automated exposure control. COMPARISON: None. FINDINGS: Image quality: Excellent. Bones: Trace anterolisthesis C7 on T1. 5 mm anterolisthesis T10 on T11. Minimal S shaped thoracolumbar curvature. No acute vertebral body compression fractures. No suspicious sclerotic or lytic bony lesions. There is multilevel prominent facet arthropathy. This results in severe right foraminal narrowing at T3-T4 with right foraminal nerve root impingement. There is a degree of right foraminal narrowing at T9-T10 and T10-T11. There is severe left foraminal narrowing at T7-T8 and T8-T9. There is evidence of remote right hemilaminectomy at T10-T11. Note is made of large posterior osteophyte at L2-L3 with canal stenosis, likely severe. Soft tissues: No paravertebral masses or hematomas. Visualized posteromedial lungs appear clear. IMPRESSION: 1. No acute bony abnormality. 2. No compression fractures, either acute or chronic. 3. Extensive degenerative change with multilevel facet arthropathy. 4. Remote right hemilaminectomy at T10-T11. 5. There is large posterior osteophyte at L2-L3 with canal stenosis, likely severe. Dictated by: Ryan Chu M.D. on 05/25/2023 at 20:31 Approved by: Ryan Chu M.D. on 05/25/2023 at 20:37
== END ==
PROVIDERS: PCP Family Medicine; Referring Provider Psychiatry & Neurology Neurology; Visit Provider Psychiatry & Neurology Neurology
DX: M47.12 Other spondylosis with myelopathy, cervical region (principal); M48.02 Spinal stenosis, cervical region; M51.04 Intervertebral disc disorders with myelopathy, thoracic region
CPT/HCPCS: 72125; 72128

== ENCOUNTER → 2023-07-09 12:09 | Outpatient (CLI) | payer MEDICARE, OTHER, SELFPAY ==
--- NOTE | 2023-07-09 12:13 | DI.RAD.S_ITS ---
PROCEDURE: XR LUMBAR SPINE MIN 4V INDICATIONS: BACK PAIN TECHNIQUE: 5 views of the lumbar spine acquired, including flexion and extension views. COMPARISON: None. FINDINGS: Bones: 5 nonrib-bearing vertebrae are present. Stepwise retrolisthesis of L3 on L4, L2 on L3 and L1 on L2, likely degenerative. Severe disc height loss at all levels. Diffuse facet arthrosis. Partially visualized surgical fusion hardware of T10 and T11. Vertebral body height loss of L2, likely age related. Soft tissues: Overlying bowel gas pattern is normal. No suspicious soft tissue calcifications. Flexion/extension: There is normal range of motion, with preserved normal alignment. IMPRESSION: Severe, multilevel degenerative disc disease and diffuse facet arthrosis. Degenerative listhesis, stable with flexion and extension. Dictated by: Yung Gray M.D. on 07/09/2023 at 14:47 Approved by: Yung Gray M.D. on 07/09/2023 at 14:54
== END ==
PROVIDERS: PCP Family Medicine; Referring Provider Neurological Surgery; Visit Provider Neurological Surgery
DX: M51.36 Other intervertebral disc degeneration, lumbar region (principal); M47.816 Spondylosis without myelopathy or radiculopathy, lumbar region; M43.16 Spondylolisthesis, lumbar region; Z98.1 Arthrodesis status; Z98.890 Other specified postprocedural states
CPT/HCPCS: 72110

== ENCOUNTER → 2023-11-22 13:24 | Outpatient (CLI) | payer MEDICARE, OTHER, SELFPAY ==
--- NOTE | 2023-11-22 13:28 | DI.RAD.S_ITS ---
PROCEDURE: XR LUMBAR SPINE MIN 4V INDICATIONS: POST PROCEDURE TECHNIQUE: 5 views of the lumbar spine were acquired, including bilateral oblique views. COMPARISON: [facility], CR, XR LUMBAR SPINE MIN 4V, 07/09/2023, 12:12. FINDINGS: Lumbar spine curvature and alignment: Normal. Bones: There are no osseous abnormalities. Disc spaces: T10/T11 posterior fusion changes appear anatomically aligned. Severe L1-2 through L5-S1 degenerative disc disease noted. There is severe L3-4 L4-5 and L5-S1 degenerative facet disease. Soft tissues: No soft tissue swelling, calcification or mass. IMPRESSION: Multilevel degeneration. Dictated by: Saroj Berumen M.D. on 11/23/2023 at 9:55 Approved by: Saroj Berumen M.D. on 11/23/2023 at 9:57
== END ==
PROVIDERS: PCP Family Medicine; Referring Provider Neurological Surgery; Visit Provider Neurological Surgery
DX: M51.369 Other intervertebral disc degeneration, lumbar region without mention of lumbar back pain or lower extremity pain (principal); M51.379 Other intervertebral disc degeneration, lumbosacral region without mention of lumbar back pain or lower extremity pain; M47.817 Spondylosis without myelopathy or radiculopathy, lumbosacral region; M47.816 Spondylosis without myelopathy or radiculopathy, lumbar region; Z98.890 Other specified postprocedural states; Z98.1 Arthrodesis status
CPT/HCPCS: 72110

== ENCOUNTER → 2024-11-28 08:20 | Outpatient (CLI) | payer MEDICARE, OTHER, SELFPAY ==
--- NOTE | 2024-11-28 08:22 | DI.MRI.S_ITS ---
PROCEDURE: MR THORACIC SPINE WO CON INDICATIONS: Spinal Stenosis TECHNIQUE: Noncontrast sagittal T1 spine echo and T2 fast spin echo, sagittal STIR, and T2 fast spin echo through the thoracic spine. COMPARISON: [facility], , MR THORACIC SPINE WO/W CON, 11/25/2021, 15:41. FINDINGS: Image quality: Excellent. Postsurgical changes: T11-T12 posterior spinal fusion with instrumentation Alignment and Curvature: There is normal bony alignment. Bone Marrow: Marrow is of normal overall signal. No acute vertebral body compression fractures. Spinal Cord: Visualized spinal cord is normal in size and signal. Paraspinous Soft Tissues: No paravertebral masses. Segmental analysis: T11-T12: Severe facet hypertrophy worsened from prior with mild central canal stenosis. No foraminal stenosis. T9-T10: Mild facet hypertrophy. No spinal canal or foraminal narrowing. Similar to prior. T8-T9: Posterior disc bulge and mild facet hypertrophy. Mild central canal stenosis. Mild left foraminal stenosis. T7-T8: Disc height loss. Left foraminal disc osteophyte. Mild central canal stenosis. No foraminal stenosis. Remaining levels : no significant foraminal canal stenosis. IMPRESSION: Interval T10-T11 posterior spinal fusion with worsening degeneration at T11-T12. Dictated by: Rickey Talamantes M.D. on 11/28/2024 at 15:45 Approved by: Rickey Talamantes M.D. on 11/28/2024 at 15:52
--- NOTE | 2024-11-28 08:22 | DI.MRI.S_ITS ---
PROCEDURE: MR LUMBAR SPINE WO CON INDICATIONS: Spinal Stenosis.. TECHNIQUE: Noncontrast sagittal T1 spin echo and T2 fast echo, sagittal STIR, and T2 fast spin echo through the lumbar spine. In cases with scoliosis, additional coronal T2 fast spin echo may be performed. COMPARISON: [facility], MR, MR LUMBAR SPINE WO/W CON, 11/25/2021, 15:41. FINDINGS: Image quality: Excellent. Hardware: Partially imaged fusion hardware in T11. Alignment and Curvature: Retrolisthesis 2 mm at L1-L2. Retrolisthesis 4 mm at L2-L3. Retrolisthesis 2 mm at L3-L4. Bone Marrow: Marrow is of normal overall signal. No acute vertebral body compression fractures. Spinal Cord: Conus medullaris terminates at the L1 level. Visualized cord demonstrates normal signal and size. Paraspinous Soft Tissues: No paravertebral masses. T12-L1: Mild disc height loss. Left subarticular disc protrusion. Mild bilateral facet hypertrophy. Moderate spinal canal stenosis. No right and mild left foraminal stenosis. Volume of herniated disc material has decreased from comparison examination. L1-L2: Severe intervertebral disc height loss with pseudo bulge. Mild bilateral facet hypertrophy. Moderate central canal stenosis. Mild right and moderate left foraminal stenosis. Disc height loss has worsened but foraminal and canal narrowing similar to prior. L2-L3: Complete intervertebral disc height loss and pseudo bulge. Moderate facet hypertrophy. Severe bilateral foraminal stenosis. Moderate canal stenosis. Unchanged from prior. L3-L4: Moderate to severe disc height loss. Pseudo disc bulge. Moderate bilateral facet hypertrophy. Severe bilateral foraminal stenosis. Moderate central canal stenosis. Unchanged from prior. L4-L5: Moderate to severe disc height loss. Posterior disc bulge. Severe right and moderate to severe left facet hypertrophy. Moderate central canal stenosis. Severe bilateral foraminal stenosis, more pronounced on the right. Similar to prior. L5-S1: Moderate to severe disc height loss and posterior disc osteophyte. Moderate to severe bilateral facet arthropathy. Mild central canal stenosis. Severe bilateral foraminal stenosis. Similar to prior examination. IMPRESSION: Severe multilevel degenerative changes similar to prior. Dictated by: Rickey Talamantes M.D. on 11/28/2024 at 15:20 Approved by: Rickey Talamantes M.D. on 11/28/2024 at 15:33
--- NOTE | 2024-11-28 08:22 | DI.MRI.S_ITS ---
P or ROCEDURE: MR CERVICAL SPINE WO CON INDICATIONS: Spinal Stenosis TECHNIQUE: Noncontrast sagittal T1 spin echo and T2 fast spin echo, sagittal STIR, foraminal oblique sagittal T2 fast spin echo, and axial gradient echo or T2 fast spin echo through the cervical spine. COMPARISON: [facility], MR, MR CERVICAL SPINE WO/W CON, 11/25/2021, 15:41. FINDINGS: Image quality: Excellent. Postoperative change: Anterior cervical discectomy and fusion at C4-C5 without osseous fusion. Alignment and Curvature: There is normal bony alignment. Bone Marrow: Marrow demonstrates normal overall signal. Spinal Cord: Visualized spinal cord has normal size and signal. No cerebellar tonsillar herniation. Paraspinous Soft Tissues: No paravertebral masses. Prevertebral soft tissues are normal in thickness. C2-C3: Moderate left and severe right facet arthropathy. Mild uncovertebral spurring. No left and moderate right foraminal stenosis. No central canal stenosis. C3-C4: Severe uncovertebral spurring. Mild left and moderate right facet arthropathy. Moderate left and severe right foraminal stenosis. Mild central canal stenosis. C4-C5: Anterior fusion. Mild uncovertebral spurring. Mild bilateral facet hypertrophy. Severe left and moderate right foraminal stenosis. Mild central canal stenosis. C5-C6: Moderate bilateral facet hypertrophy. Mild left and moderate right foraminal stenosis. C6-C7: Disc height loss and pronounced uncovertebral spurring. Moderate bilateral foraminal stenosis. Mild central canal stenosis. Degenerative changes have worsened from prior. C7-T1: Moderate bilateral facet arthropathy. No foraminal stenosis. No central canal stenosis. IMPRESSION: Multilevel spondylosis, status post fusion at C4-C5 and with worsening degeneration at C6-C7. Dictated by: Rickey Talamantes M.D. on 11/28/2024 at 15:33 Approved by: Rickey Talamantes M.D. on 11/28/2024 at 15:44
--- NOTE | 2024-11-28 08:38 | DI.RAD.S_ITS ---
PROCEDURE: XR SCOLIOSIS SURVEY INDICATIONS: Spinal Stenosis TECHNIQUE: Frontal and lateral standing views of the spine acquired. COMPARISON: None. FINDINGS: Levoconvex curvature of the lower lumbar spine with Mercado angle of 20 degrees. Dextroconvex curvature of the lower thoracic and upper lumbar spine with Mercado angle of 12 degrees. Bone morphology: No developmental anomalies of the ribs or spine. Twelve pairs of ribs are noted. 5 nonrib-bearing lumbar vertebrae are present. No suspicious bony lesions. Postsurgical changes are seen from posterior fixation at T10-11. Multilevel degenerative changes and multilevel grade 1 retrolisthesis in the lumbar spine. IMPRESSION: Scoliotic curvature of the thoracic and lumbar spine with measurements provided above. Postsurgical changes at T10-11. Approved by: Adin Boland M.D. on 11/28/2024 at 20:29
== END ==
PROVIDERS: PCP Family Medicine; Referring Provider Neurological Surgery; Visit Provider Neurological Surgery
DX: M51.04 Intervertebral disc disorders with myelopathy, thoracic region (principal); M51.369 Other intervertebral disc degeneration, lumbar region without mention of lumbar back pain or lower extremity pain; M47.812 Spondylosis without myelopathy or radiculopathy, cervical region; M47.14 Other spondylosis with myelopathy, thoracic region; M47.816 Spondylosis without myelopathy or radiculopathy, lumbar region; M47.817 Spondylosis without myelopathy or radiculopathy, lumbosacral region; M48.02 Spinal stenosis, cervical region; M48.04 Spinal stenosis, thoracic region; M48.061 Spinal stenosis, lumbar region without neurogenic claudication; M48.07 Spinal stenosis, lumbosacral region; R26.89 Other abnormalities of gait and mobility; Z98.1 Arthrodesis status
CPT/HCPCS: 72082; 72141; 72146; 72148